=== PATIENT | female | born 1995 | race Caucasian/White ===

== ENCOUNTER 2023-04-04 16:00 | Outpatient (RCR) | payer OTHER, SELFPAY ==
--- NOTE | 2023-03-16 16:45 | PT.OIE ---
Current Diagnoses Pain in left shoulder (03/16/23) Strain of unspecified muscle, fascia and tendon at shoulder and upper arm level, left arm, subsequent encounter (03/16/23) Visit Care Team Role Provider Type Alfredo Berry DO Family Provider Non-Staff Primary Care Provider Specialty: Family Practice Address: [place], [address] Email: CONCHIS Mejia Attending Provider Non-Staff Referring Provider Specialty: Nursing Address: [facility] [place], [address] Phone: Email: Physical Therapy Initial Evaluation PT-OP-A Visit Information Start: 03/16/23 17:33 Freq: Status: Active Protocol: Document 03/16/23 16:00 DCW (Rec: 03/16/23 17:45 [facility] [id number]) Out-Patient Physical Therapy Visit Information Visit Information Visit Type Initial Evaluation Visit Start Time 16:00 Visit Stop Time 16:45 Visit Number 1 Number of INSPECTOR PACKER Visits 0 Evaluation Information Evaluation Date 03/16/23 PT-OP-B Current Condition Start: 03/16/23 17:33 Freq: Status: Active Protocol: Document 03/16/23 16:00 DCW (Rec: 03/16/23 17:45 [facility] [id number]) Current Condition History of Current Condition Onset Date 02/20/23 Current Complaints Left shoulder pain, tightness History of Current Condition Pt is a 27 year old female presenting with a 3.5 week history of left shoulder pain. Pt reports she fell forward over her board when snowboarding and landed on her chest and left shoulder. She does not think that she fell onto an outstretched arm, but is not quite sure. Pt notes that when it happened, she didn't think much of it, just had some general soreness, but as she had spent the day snowboarding, it was not worse than expected. Woke up the neck morning and had a lot of sharp pain when putting her hair up , and then that day at work, kept dropping things due to the sharp pain. Over the past few weeks, pt notes that the sharp pains seem to have stopped, but she gets occasional/intermittent spasms where her shoulder musculature just seem to lock up and make everything pretty sore and tight. Reports that driving on her way to her evaluation, she reached over to move her air vent, and had that same spasm. Notes she can't lean on it and struggles when rolling onto it during the night. PT-OP-C Subjective Start: 03/16/23 17:33 Freq: Status: Active Protocol: Document 03/16/23 16:00 DCW (Rec: 03/16/23 17:45 DCW [id number]) OP-PT Subjective Patient Comments Patient Comments It doesn't really hurt all that much anymore, it just feels so tight. Patient Questionnaires Quick Dash- Upper Extremity Quick Dash UE Score 27.27% Quick Dash UE Impairment 20 to 39% Impaired (Score 20- 39) PT-OP-E Functional Tests Start: 03/16/23 17:33 Freq: Status: Active Protocol: Document 03/16/23 16:00 DCW (Rec: 03/16/23 17:49 DCW [id number]) Functional Tests Apley's Scratch Test Action 1- Left Posterior opposite shoulder Action 1- Right Posterior opposite shoulder Action 2- Left T4 Action 2- Right T4 Action 3- Left T8 Action 3- Right T6 PT-OP-F Manual Assessment Start: 03/17/23 08:34 Freq: Status: Active Protocol: Document 03/16/23 16:00 DCW (Rec: 03/17/23 08:36 DCW [id number]) Manual Assessments Soft Tissue Assessment Soft Tissue Mobility Assessment Moderate tone with tenderness to palpation 2/4: pain with wincing at left pec, left subscap, left supraspinatus Joint Mobility Assessment Joint Mobility Assessment Complaint of pain with a/c joint mobilization, no step deformity PT-OP-K Range of Motion Start: 03/16/23 17:33 Freq: Status: Active Protocol: Document 03/16/23 16:00 DCW (Rec: 03/16/23 17:49 DCW [id number]) Shoulder Goniometric Range of Motion Shoulder Left Active Shoulder ROM WFL Yes Testing Position Sitting Flexion 180 Abduction 180 External Rotation at 0 degrees Abduction 70 Internal Rotation Behind Back (text) T8 PT-OP-L Special Tests Start: 03/16/23 17:33 Freq: Status: Active Protocol: Document 03/16/23 16:00 DCW (Rec: 03/16/23 17:49 DCW [id number]) Special Tests Shoulder Special Tests Speed's Biceps Test Results Negative Passive ER Rotator Cuff Test Results Negative Painful Arc Test Results Negative Lift-Off Rotator Cuff Test Results Negative Horne Khang Impingement Test Results Negative Grind Labrum Test Results Negative Empty Can Test Results Negative Drop Arm Rotator Cuff Test Results Negative Clunk Test Test Results Negative Biceps Load II Test Test Results Negative Belly Press Test Results Negative Apprehension Test Test Results Negative Anterior Draw Test Results Negative AC Joint Compression Test Results Positive left for increased discomfort PT-OP-M Strength Start: 03/16/23 17:33 Freq: Status: Active Protocol: Document 03/16/23 16:00 DCW (Rec: 03/16/23 17:49 DCW [id number]) Shoulder Strength Shoulder Manual Muscle Testing Right Flexion 5 Normal Abduction (C5) 5 Normal External Rotation 5 Normal Internal Rotation 5 Normal Left Flexion 5 Normal Abduction (C5) 5 Normal External Rotation 5 Normal Internal Rotation 5 Normal PT-OP-Q Treatments Start: 03/16/23 17:33 Freq: Status: Active Protocol: Document 03/16/23 16:00 DCW (Rec: 03/16/23 17:50 DCW [id number]) Therapeutic Exercises Standing Exercises Pec Stretch Standing Exercise Name Corner pec stretch Side bilateral Other Exercises Self STM Other Exercise Name Lateral scapular STM tennis ball on wall Manual Therapy Treatment Joint Mobilizations Scapulothoracic Joint L Scapulothoracic Direction Lateral Grade IV Body Position Sidelying PT-OP-T Assessment and Plan Start: 03/16/23 17:33 Freq: Status: Active Protocol: Document 03/16/23 16:00 DCW (Rec: 03/17/23 08:34 DCW [id number]) Physical Therapy Assessment Rehab Potential Rehabilitation Potential Good Evaluation Complexity Number of Personal Factors/Comorbidities 0 Number of Body Systems Impaired 1-2 Clinical Presentation at Evaluation Stable Impairments Impairments Functional Activities, Functional Mobility,Pain,Soft Tissue Mobility,Tone Goals Two Impairment Pt demonstrates decreased L scapulothoracic rhythm during abduction Occupational Therapy Teacher Goal (LTG) Pt to demonstrate left scapulothoracic rhythm equal to right with shoulder abduction in order to improve quality of movement through full ROM LTG Duration 05/15/23 One Impairment Pt does not have an appropriate home exercise program Short Term Goal (STG) Pt to be independent and compliant with an appropriate HEP STG Duration 04/14/23 Assessment Summary Assessment Testing today largely unremarkable other than notable tightness in left pec, subscapularis, and supraspinatus, as well as decreased scapulothoracic rhythm during abduction. Pt not displaying any positive testing which may indicate rotator cuff or labral involvement, no notable instability of joint. Appears pt experienced a soft tissue strain, as well as possibly a low-grade a/c joint sprain. Should benefit from skilled therapy focusing on STM and stretching to improve periscapular tone, as well as strengthening of the shoulder girdle. Physical Therapy Plan Frequency and Duration Frequency of Treatment 2x/Week Plan of Care Start Date 03/16/23 Plan of Care End Date 05/15/23 Therapeutic Interventions Therapeutic Interventions Home Exercise Program,Joint Mobilizations,Manual Therapy, Patient/Caregiver Education, Self-Care/Home Management,Soft Tissue Mobilization, Therapeutic Activities, Therapeutic Exercises Modalities Cold Pack/Ice Massage,Electric Stimulation,Hot Packs, Ultrasound Next Visit Focus/Plan Next Note Type Treatment Note Next Visit Plan Shoulder strengthening, stretching, STM, joint mobilizations
--- NOTE | 2023-03-17 08:38 | PT.OPPOC ---
Physical, Occupational & Speech Therapy At [facility] Current Diagnoses Pain in left shoulder (03/16/23) Strain of unspecified muscle, fascia and tendon at shoulder and upper arm level, left arm, subsequent encounter (03/16/23) Visit Care Team Role Provider Type Alfredo Berry DO Family Provider Non-Staff Primary Care Provider Specialty: Family Practice Address: [place], [address] Email: CONCHIS Mejia Attending Provider Non-Staff Referring Provider Specialty: Nursing Address: [address] [place] [address], [address] Phone: Email: Plan Of Care PT-OP-T Assessment and Plan Start: 03/16/23 17:33 Freq: Status: Active Protocol: Document 03/16/23 16:00 DCW (Rec: 03/17/23 08:34 DCW [id number]) Physical Therapy Assessment Rehab Potential Rehabilitation Potential Good Evaluation Complexity Number of Personal Factors/Comorbidities 0 Number of Body Systems Impaired 1-2 Clinical Presentation at Evaluation Stable Impairments Impairments Functional Activities, Functional Mobility,Pain,Soft Tissue Mobility,Tone Goals Two Impairment Pt demonstrates decreased L scapulothoracic rhythm during abduction Shelter Goal (LTG) Pt to demonstrate left scapulothoracic rhythm equal to right with shoulder abduction in order to improve quality of movement through full ROM LTG Duration 05/15/23 One Impairment Pt does not have an appropriate home exercise program Short Term Goal (STG) Pt to be independent and compliant with an appropriate HEP STG Duration 04/14/23 Assessment Summary Assessment Testing today largely unremarkable other than notable tightness in left pec, subscapularis, and supraspinatus, as well as decreased scapulothoracic rhythm during abduction. Pt not displaying any positive testing which may indicate rotator cuff or labral involvement, no notable instability of joint. Appears pt experienced a soft tissue strain, as well as possibly a low-grade a/c joint sprain. Should benefit from skilled therapy focusing on STM and stretching to improve periscapular tone, as well as strengthening of the shoulder girdle. Physical Therapy Plan Frequency and Duration Frequency of Treatment 2x/Week Plan of Care Start Date 03/16/23 Plan of Care End Date 05/15/23 Therapeutic Interventions Therapeutic Interventions Home Exercise Program,Joint Mobilizations,Manual Therapy, Patient/Caregiver Education, Self-Care/Home Management,Soft Tissue Mobilization, Therapeutic Activities, Therapeutic Exercises Modalities Cold Pack/Ice Massage,Electric Stimulation,Hot Packs, Ultrasound Next Visit Focus/Plan Next Note Type Treatment Note Next Visit Plan Shoulder strengthening, stretching, STM, joint mobilizations Plan of Care Dates Plan of Care Start Date 03/16/23 Plan of Care End Date 05/15/23 Electronically Signed by: Moi Butterfield, PT 03/17/23 0838 If you are in agreement with this Plan of Care, please return a signed and dated copy. I have reviewed this Plan of Care and certify that the skilled therapy services above are required to meet the patient?s needs. Physician Signature Date Printed Name and Credentials Clinical Instructor Signature Printed Name and Credentials
--- NOTE | 2023-03-20 16:45 | PT.OTN ---
Current Diagnoses Pain in left shoulder (03/20/23) Strain of unspecified muscle, fascia and tendon at shoulder and upper arm level, left arm, subsequent encounter (03/20/23) Physical Therapy Treatment Note PT-OP-A Visit Information Start: 03/16/23 17:33 Freq: Status: Active Protocol: Document 03/20/23 16:00 DCW (Rec: 03/20/23 16:44 DCW [id number]) Out-Patient Physical Therapy Visit Information Visit Information Visit Type Treatment Note Visit Start Time 16:00 Visit Stop Time 16:45 Visit Number 2 Number of HAIR DRYER Visits 0 Evaluation Information Evaluation Date 03/16/23 PT-OP-B Current Condition Start: 03/16/23 17:33 Freq: Status: Active Protocol: Document 03/16/23 16:00 DCW (Rec: 03/16/23 17:45 DCW [id number]) Current Condition History of Current Condition Onset Date 02/20/23 Current Complaints Left shoulder pain, tightness History of Current Condition Pt is a 27 year old female presenting with a 3.5 week history of left shoulder pain. Pt reports she fell forward over her board when snowboarding and landed on her chest and left shoulder. She does not think that she fell onto an outstretched arm, but is not quite sure. Pt notes that when it happened, she didn't think much of it, just had some general soreness, but as she had spent the day snowboarding, it was not worse than expected. Woke up the neck morning and had a lot of sharp pain when putting her hair up , and then that day at work, kept dropping things due to the sharp pain. Over the past few weeks, pt notes that the sharp pains seem to have stopped, but she gets occasional/intermittent spasms where her shoulder musculature just seem to lock up and make everything pretty sore and tight. Reports that driving on her way to her evaluation, she reached over to move her air vent, and had that same spasm. Notes she can't lean on it and struggles when rolling onto it during the night. PT-OP-C Subjective Start: 03/16/23 17:33 Freq: Status: Active Protocol: Document 03/20/23 16:00 DCW (Rec: 03/20/23 16:44 DCW [id number]) OP-PT Subjective Patient Comments Patient Comments It's feeling pretty good. Still tight, but not really having the sharp pain. PT-OP-E Functional Tests Start: 03/16/23 17:33 Freq: Status: Active Protocol: Document 03/16/23 16:00 DCW (Rec: 03/16/23 17:49 DCW [id number]) Functional Tests Apley's Scratch Test Action 1- Left Posterior opposite shoulder Action 1- Right Posterior opposite shoulder Action 2- Left T4 Action 2- Right T4 Action 3- Left T8 Action 3- Right T6 PT-OP-F Manual Assessment Start: 03/17/23 08:34 Freq: Status: Active Protocol: Document 03/16/23 16:00 DCW (Rec: 03/17/23 08:36 DCW [id number]) Manual Assessments Soft Tissue Assessment Soft Tissue Mobility Assessment Moderate tone with tenderness to palpation 2/4: pain with wincing at left pec, left subscap, left supraspinatus Joint Mobility Assessment Joint Mobility Assessment Complaint of pain with a/c joint mobilization, no step deformity PT-OP-K Range of Motion Start: 03/16/23 17:33 Freq: Status: Active Protocol: Document 03/16/23 16:00 DCW (Rec: 03/16/23 17:49 DCW [id number]) Shoulder Goniometric Range of Motion Shoulder Left Active Shoulder ROM WFL Yes Testing Position Sitting Flexion 180 Abduction 180 External Rotation at 0 degrees Abduction 70 Internal Rotation Behind Back (text) T8 PT-OP-L Special Tests Start: 03/16/23 17:33 Freq: Status: Active Protocol: Document 03/16/23 16:00 DCW (Rec: 03/16/23 17:49 DCW [id number]) Special Tests Shoulder Special Tests Speed's Biceps Test Results Negative Passive ER Rotator Cuff Test Results Negative Painful Arc Test Results Negative Lift-Off Rotator Cuff Test Results Negative Horne Khang Impingement Test Results Negative Grind Labrum Test Results Negative Empty Can Test Results Negative Drop Arm Rotator Cuff Test Results Negative Clunk Test Test Results Negative Biceps Load II Test Test Results Negative Belly Press Test Results Negative Apprehension Test Test Results Negative Anterior Draw Test Results Negative AC Joint Compression Test Results Positive left for increased discomfort PT-OP-M Strength Start: 03/16/23 17:33 Freq: Status: Active Protocol: Document 03/16/23 16:00 DCW (Rec: 03/16/23 17:49 DCW [id number]) Shoulder Strength Shoulder Manual Muscle Testing Right Flexion 5 Normal Abduction (C5) 5 Normal External Rotation 5 Normal Internal Rotation 5 Normal Left Flexion 5 Normal Abduction (C5) 5 Normal External Rotation 5 Normal Internal Rotation 5 Normal PT-OP-Q Treatments Start: 03/16/23 17:33 Freq: Status: Active Protocol: Document 03/20/23 16:00 DCW (Rec: 03/20/23 16:44 DCW [id number]) Cardio Equipment Upper Body Ergometer (UBE) Duration (Minutes) 6 RPM 60 Seat Position 9 Height 4.5 Therapeutic Exercises Supine Exercises Flexion Supine Exercise Name Flexion Side bilateral Resistance 5# PVC Horizontal Adduction Supine Exercise Name Horizontal Adduction Side bilateral Resistance 3# Serratus Punch Supine Exercise Name Serratus Punch Side bilateral Resistance 3# Other Exercises Resisted Ambulation Other Exercise Name Resisted UE Side-stepping Resistance [place] Manual Therapy Treatment Soft Tissue Mobilization Pec Body Location L Pec Mobilization Type Strumming,Sustained Pressure Intensity/Depth Moderate Body Position Supine Periscapular Body Location L Periscapular Mobilization Type Strumming,Sustained Pressure Intensity/Depth Moderate Body Position Supine Joint Mobilizations Scapulothoracic Joint L Scapulothoracic Direction Lateral Grade IV Body Position Sidelying PT-OP-T Assessment and Plan Start: 03/16/23 17:33 Freq: Status: Active Protocol: Document 03/20/23 16:00 DCW (Rec: 03/20/23 16:44 [facility] [id number]) Physical Therapy Assessment Impairments Impairments Functional Activities, Functional Mobility,Pain,Soft Tissue Mobility,Tone Goals Two Impairment Pt demonstrates decreased L scapulothoracic rhythm during abduction Intermediate Goal (LTG) Pt to demonstrate left scapulothoracic rhythm equal to right with shoulder abduction in order to improve quality of movement through full ROM LTG Duration 05/15/23 One Impairment Pt does not have an appropriate home exercise program Short Term Goal (STG) Pt to be independent and compliant with an appropriate HEP STG Duration 04/14/23 Assessment Summary Assessment Good response to treatment today, pt noted with most exercise, was noticeably more difficult/tighter on left arm vs right, but was able to perform well. Tone is slightly improved compared to last week, doing well with home stretching. Physical Therapy Plan Frequency and Duration Frequency of Treatment 2x/Week Plan of Care Start Date 03/16/23 Plan of Care End Date 05/15/23 Therapeutic Interventions Therapeutic Interventions Home Exercise Program,Joint Mobilizations,Manual Therapy, Patient/Caregiver Education, Self-Care/Home Management,Soft Tissue Mobilization, Therapeutic Activities, Therapeutic Exercises Modalities Cold Pack/Ice Massage,Electric Stimulation,Hot Packs, Ultrasound Next Visit Focus/Plan Next Note Type Treatment Note Next Visit Plan Shoulder strengthening, stretching, STM, joint mobilizations
--- NOTE | 2023-03-22 16:45 | PT.OTN ---
Current Diagnoses Pain in left shoulder (03/22/23) Strain of unspecified muscle, fascia and tendon at shoulder and upper arm level, left arm, subsequent encounter (03/22/23) Physical Therapy Treatment Note PT-OP-A Visit Information Start: 03/16/23 17:33 Freq: Status: Active Protocol: Document 03/22/23 16:00 DCW (Rec: 03/22/23 16:45 DCW [id number]) Out-Patient Physical Therapy Visit Information Visit Information Visit Type Treatment Note Visit Start Time 16:00 Visit Stop Time 16:45 Visit Number 3 Number of ADHESIVE PRIMER Visits 0 Evaluation Information Evaluation Date 03/16/23 PT-OP-B Current Condition Start: 03/16/23 17:33 Freq: Status: Active Protocol: Document 03/16/23 16:00 DCW (Rec: 03/16/23 17:45 DCW [id number]) Current Condition History of Current Condition Onset Date 02/20/23 Current Complaints Left shoulder pain, tightness History of Current Condition Pt is a 27 year old female presenting with a 3.5 week history of left shoulder pain. Pt reports she fell forward over her board when snowboarding and landed on her chest and left shoulder. She does not think that she fell onto an outstretched arm, but is not quite sure. Pt notes that when it happened, she didn't think much of it, just had some general soreness, but as she had spent the day snowboarding, it was not worse than expected. Woke up the neck morning and had a lot of sharp pain when putting her hair up , and then that day at work, kept dropping things due to the sharp pain. Over the past few weeks, pt notes that the sharp pains seem to have stopped, but she gets occasional/intermittent spasms where her shoulder musculature just seem to lock up and make everything pretty sore and tight. Reports that driving on her way to her evaluation, she reached over to move her air vent, and had that same spasm. Notes she can't lean on it and struggles when rolling onto it during the night. PT-OP-C Subjective Start: 03/16/23 17:33 Freq: Status: Active Protocol: Document 03/22/23 16:00 DCW (Rec: 03/22/23 16:45 DCW [id number]) OP-PT Subjective Patient Comments Patient Comments Notes quite a bit of tenderness/soreness in her shoulder following last viist. PT-OP-E Functional Tests Start: 03/16/23 17:33 Freq: Status: Active Protocol: Document 03/16/23 16:00 DCW (Rec: 03/16/23 17:49 DCW [id number]) Functional Tests Apley's Scratch Test Action 1- Left Posterior opposite shoulder Action 1- Right Posterior opposite shoulder Action 2- Left T4 Action 2- Right T4 Action 3- Left T8 Action 3- Right T6 PT-OP-F Manual Assessment Start: 03/17/23 08:34 Freq: Status: Active Protocol: Document 03/16/23 16:00 DCW (Rec: 03/17/23 08:36 DCW [id number]) Manual Assessments Soft Tissue Assessment Soft Tissue Mobility Assessment Moderate tone with tenderness to palpation 2/4: pain with wincing at left pec, left subscap, left supraspinatus Joint Mobility Assessment Joint Mobility Assessment Complaint of pain with a/c joint mobilization, no step deformity PT-OP-K Range of Motion Start: 03/16/23 17:33 Freq: Status: Active Protocol: Document 03/16/23 16:00 DCW (Rec: 03/16/23 17:49 DCW [id number]) Shoulder Goniometric Range of Motion Shoulder Left Active Shoulder ROM WFL Yes Testing Position Sitting Flexion 180 Abduction 180 External Rotation at 0 degrees Abduction 70 Internal Rotation Behind Back (text) T8 PT-OP-L Special Tests Start: 03/16/23 17:33 Freq: Status: Active Protocol: Document 03/16/23 16:00 DCW (Rec: 03/16/23 17:49 DCW [id number]) Special Tests Shoulder Special Tests Speed's Biceps Test Results Negative Passive ER Rotator Cuff Test Results Negative Painful Arc Test Results Negative Lift-Off Rotator Cuff Test Results Negative Horne [place] Impingement Test Results Negative Grind Labrum Test Results Negative Empty Can Test Results Negative Drop Arm Rotator Cuff Test Results Negative Clunk Test Test Results Negative Biceps Load II Test Test Results Negative Belly Press Test Results Negative Apprehension Test Test Results Negative Anterior Draw Test Results Negative AC Joint Compression Test Results Positive left for increased discomfort PT-OP-M Strength Start: 03/16/23 17:33 Freq: Status: Active Protocol: Document 03/16/23 16:00 DCW (Rec: 03/16/23 17:49 DCW [id number]) Shoulder Strength Shoulder Manual Muscle Testing Right Flexion 5 Normal Abduction (C5) 5 Normal External Rotation 5 Normal Internal Rotation 5 Normal Left Flexion 5 Normal Abduction (C5) 5 Normal External Rotation 5 Normal Internal Rotation 5 Normal PT-OP-Q Treatments Start: 03/16/23 17:33 Freq: Status: Active Protocol: Document 03/22/23 16:00 DCW (Rec: 03/22/23 16:45 DCW [id number]) Cardio Equipment Upper Body Ergometer (UBE) Duration (Minutes) 6 RPM 60 Seat Position 9 Height 4.5 Therapeutic Exercises Prone Exercises I's, Y's, T's Prone Exercise Name I's, Y's, T's Side bilateral Resistance 3# Standing Exercises PNF Standing Exercise Name PNF D1/D2 UE flexion Side left Resistance 5#->4# IR Standing Exercise Name Shoulder IR at 90/90 abduction Side bilateral Resistance [place] Adduction Standing Exercise Name [place] Adduction Side left Resistance [place] Extension Standing Exercise Name Shoulder Extension Side bilateral Resistance [place] Manual Therapy Treatment Soft Tissue Mobilization Pec Body Location L Pec Mobilization Type Strumming,Sustained Pressure Intensity/Depth Moderate Body Position Supine Periscapular Body Location L Periscapular Mobilization Type Strumming,Sustained Pressure Intensity/Depth Moderate Body Position Supine Joint Mobilizations Scapulothoracic Joint L Scapulothoracic Direction Lateral Grade IV Body Position Sidelying PT-OP-T Assessment and Plan Start: 03/16/23 17:33 Freq: Status: Active Protocol: Document 03/22/23 16:00 DCW (Rec: 03/22/23 16:45 DCW [id number]) Physical Therapy Assessment Impairments Impairments Functional Activities, Functional Mobility,Pain,Soft Tissue Mobility,Tone Goals Two Impairment Pt demonstrates decreased L scapulothoracic rhythm during abduction Materials Scientist Goal (LTG) Pt to demonstrate left scapulothoracic rhythm equal to right with shoulder abduction in order to improve quality of movement through full ROM LTG Duration 05/15/23 One Impairment Pt does not have an appropriate home exercise program Short Term Goal (STG) Pt to be independent and compliant with an appropriate HEP STG Duration 04/14/23 Assessment Summary Assessment Noticeable a/c joint crepitus with horizontal abd/adduction, as well as overhead movements past ~90? flexion. Continue to work on multi-plane strengthening and joint mobility, work on stretching/ flexibility HEP. Physical Therapy Plan Frequency and Duration Frequency of Treatment 2x/Week Plan of Care Start Date 03/16/23 Plan of Care End Date 05/15/23 Therapeutic Interventions Therapeutic Interventions Home Exercise Program,Joint Mobilizations,Manual Therapy, Patient/Caregiver Education, Self-Care/Home Management,Soft Tissue Mobilization, Therapeutic Activities, Therapeutic Exercises Modalities Cold Pack/Ice Massage,Electric Stimulation,Hot Packs, Ultrasound Next Visit Focus/Plan Next Note Type Treatment Note Next Visit Plan Shoulder strengthening, stretching, STM, joint mobilizations
--- NOTE | 2023-04-04 16:29 | PT.OTN ---
Current Diagnoses Pain in left shoulder (04/04/23) Strain of unspecified muscle, fascia and tendon at shoulder and upper arm level, left arm, subsequent encounter (04/04/23) Physical Therapy Treatment Note PT-OP-A Visit Information Start: 03/16/23 17:33 Freq: Status: Active Protocol: Document 04/04/23 16:00 DCW (Rec: 04/04/23 16:29 DCW [id number]) Out-Patient Physical Therapy Visit Information Visit Information Visit Type Discharge Summary Visit Start Time 16:00 Visit Stop Time 16:25 Visit Number 5 Number of SPIRITUAL MINISTER Visits 0 Evaluation Information Evaluation Date 03/16/23 PT-OP-B Current Condition Start: 03/16/23 17:33 Freq: Status: Active Protocol: Document 03/16/23 16:00 DCW (Rec: 03/16/23 17:45 DCW [id number]) Current Condition History of Current Condition Onset Date 02/20/23 Current Complaints Left shoulder pain, tightness History of Current Condition Pt is a 27 year old female presenting with a 3.5 week history of left shoulder pain. Pt reports she fell forward over her board when snowboarding and landed on her chest and left shoulder. She does not think that she fell onto an outstretched arm, but is not quite sure. Pt notes that when it happened, she didn't think much of it, just had some general soreness, but as she had spent the day snowboarding, it was not worse than expected. Woke up the neck morning and had a lot of sharp pain when putting her hair up , and then that day at work, kept dropping things due to the sharp pain. Over the past few weeks, pt notes that the sharp pains seem to have stopped, but she gets occasional/intermittent spasms where her shoulder musculature just seem to lock up and make everything pretty sore and tight. Reports that driving on her way to her evaluation, she reached over to move her air vent, and had that same spasm. Notes she can't lean on it and struggles when rolling onto it during the night. PT-OP-C Subjective Start: 03/16/23 17:33 Freq: Status: Active Protocol: Document 04/04/23 16:00 DCW (Rec: 04/04/23 16:29 DCW [id number]) OP-PT Subjective Patient Comments Patient Comments The only time a felt any tightness this week was when I was putting up a new shower curtain, but otherwise I feel like it is getting back to normal. Notes putting up her hair is no longer bothering her. PT-OP-E Functional Tests Start: 03/16/23 17:33 Freq: Status: Active Protocol: Document 03/16/23 16:00 DCW (Rec: 03/16/23 17:49 DCW [id number]) Functional Tests Apley's Scratch Test Action 1- Left Posterior opposite shoulder Action 1- Right Posterior opposite shoulder Action 2- Left T4 Action 2- Right T4 Action 3- Left T8 Action 3- Right T6 PT-OP-F Manual Assessment Start: 03/17/23 08:34 Freq: Status: Active Protocol: Document 03/16/23 16:00 DCW (Rec: 03/17/23 08:36 DCW [id number]) Manual Assessments Soft Tissue Assessment Soft Tissue Mobility Assessment Moderate tone with tenderness to palpation 2/4: pain with wincing at left pec, left subscap, left supraspinatus Joint Mobility Assessment Joint Mobility Assessment Complaint of pain with a/c joint mobilization, no step deformity PT-OP-K Range of Motion Start: 03/16/23 17:33 Freq: Status: Active Protocol: Document 03/16/23 16:00 DCW (Rec: 03/16/23 17:49 DCW [id number]) Shoulder Goniometric Range of Motion Shoulder Left Active Shoulder ROM WFL Yes Testing Position Sitting Flexion 180 Abduction 180 External Rotation at 0 degrees Abduction 70 Internal Rotation Behind Back (text) T8 PT-OP-L Special Tests Start: 03/16/23 17:33 Freq: Status: Active Protocol: Document 03/16/23 16:00 DCW (Rec: 03/16/23 17:49 DCW [id number]) Special Tests Shoulder Special Tests Speed's Biceps Test Results Negative Passive ER Rotator Cuff Test Results Negative Painful Arc Test Results Negative Lift-Off Rotator Cuff Test Results Negative Horne [place]hang Impingement Test Results Negative Grind Labrum Test Results Negative Empty Can Test Results Negative Drop Arm Rotator Cuff Test Results Negative Clunk Test Test Results Negative Biceps Load II Test Test Results Negative Belly Press Test Results Negative Apprehension Test Test Results Negative Anterior Draw Test Results Negative AC Joint Compression Test Results Positive left for increased discomfort PT-OP-M Strength Start: 03/16/23 17:33 Freq: Status: Active Protocol: Document 03/16/23 16:00 DCW (Rec: 03/16/23 17:49 DCW [id number]) Shoulder Strength Shoulder Manual Muscle Testing Right Flexion 5 Normal Abduction (C5) 5 Normal External Rotation 5 Normal Internal Rotation 5 Normal Left Flexion 5 Normal Abduction (C5) 5 Normal External Rotation 5 Normal Internal Rotation 5 Normal PT-OP-Q Treatments Start: 03/16/23 17:33 Freq: Status: Active Protocol: Document 04/04/23 16:00 DCW (Rec: 04/04/23 16:29 DCW [id number]) Cardio Equipment Upper Body Ergometer (UBE) Duration (Minutes) 6 RPM 60 Seat Position 9 Height 4.5 Other fwd/bwd Gym Equipment Therapeutic Ball Shoulder Stabilization Exercise Details Stabilization vs Pertubation Ball Size/Color Red - 55 cm Comments Shoulders in 90? flexion Prone Walk-out Exercise Details Prone Walk-out /c push-up Ball Size/Color Green - 65 cm Manual Therapy Treatment Soft Tissue Mobilization Periscapular Body Location L Periscapular Mobilization Type Strumming,Sustained Pressure Intensity/Depth Moderate Body Position Supine PT-OP-R Modalities Start: 03/29/23 16:42 Freq: Status: Active Protocol: Document 03/29/23 15:21 NBM (Rec: 03/29/23 16:42 NBM [id number]) Hot Pack/Cold Pack Treatment Cold Pack Location L shoulder Patient Position Hooklying Patient Tolerance Good PT-OP-T Assessment and Plan Start: 03/16/23 17:33 Freq: Status: Active Protocol: Document 04/04/23 16:00 DCW (Rec: 04/04/23 16:29 DCW [id number]) Physical Therapy Assessment Impairments Impairments Functional Activities, Functional Mobility,Pain,Soft Tissue Mobility,Tone Goals Two Impairment Pt demonstrates decreased L scapulothoracic rhythm during abduction Assisted Goal (LTG) Pt to demonstrate left scapulothoracic rhythm equal to right with shoulder abduction in order to improve quality of movement through full ROM LTG Duration Met One Impairment Pt does not have an appropriate home exercise program Short Term Goal (STG) Pt to be independent and compliant with an appropriate HEP STG Duration Met Assessment Summary Assessment Pt doing well overall, no further complaints of lingering pain, only mild stiffness. Pt feels comfortable with discharge at this time. Physical Therapy Plan Frequency and Duration Frequency of Treatment 2x/Week Plan of Care Start Date 03/16/23 Plan of Care End Date 05/15/23 Therapeutic Interventions Therapeutic Interventions Home Exercise Program,Joint Mobilizations,Manual Therapy, Patient/Caregiver Education, Self-Care/Home Management,Soft Tissue Mobilization, Therapeutic Activities, Therapeutic Exercises Modalities Cold Pack/Ice Massage,Electric Stimulation,Hot Packs, Ultrasound Discharge Physical Therapy Discharge Reasons Goals Met Next Visit Focus/Plan Next Note Type Discharge Summary
== END 2023-04-05 10:37 | disposition home or self-care (01) ==
LOC: PHYS 16:00
PROVIDERS: Family Provider Family Medicine; PCP Family Medicine; Referring Provider Nurse Practitioner Family; Visit Provider Nurse Practitioner Family
DX: M25.512 Pain in left shoulder (principal); S46.912D Strain of unspecified muscle, fascia and tendon at shoulder and upper arm level, left arm, subsequent encounter
CPT/HCPCS: 97110; 97140; 97161